=== PATIENT | female | born 1960 | race Caucasian/White ===

== ENCOUNTER 2019-06-16 18:34 | Emergency (ER) | payer OTHER ==
[2019-06-16 18:50] VITALS: BP 130/78; PULSE 89; TEMP 97.8; BMI 24.8
[2019-06-16] MEDS ORDERED: METOCLOPRAMIDE HCL INJECTION 10 MG/2 ML VIAL IVPUSH ONE (19:14)
[2019-06-16] MEDS ORDERED: SODIUM CHLORIDE 0.9% 500 ML INFUS.BAG IV ONE ×2 (19:14→20:37)
[2019-06-16] MEDS ORDERED: METOCLOPRAMIDE HCL INJECTION 10 MG/2 ML VIAL ONE (19:32)
[2019-06-16] MEDS ORDERED: ACETAMINOPHEN 1000 MG/100 ML VIAL (NON FORMULARY) IVPB ONE (20:36)
[2019-06-16] MEDS ORDERED: ACETAMINOPHEN INJECTION 100 ML IVPB ONE (20:41)
[2019-06-16] MEDS ORDERED: ONDANSETRON 4 MG/2 ML VIAL ONE (21:13)
[2019-06-16] MEDS ORDERED: ONDANSETRON 4 MG/2 ML VIAL IVPB ONE (21:13)
--- NOTE | 2019-06-16 22:46 | PDOC ---
Documentation entered by Consuelo Edwards SCRIBE, acting as scribe for Gurvinder Chairez MD. Gurvinder Chairez MD: This documentation has been prepared by the gaelibe, Consuelo Edwards SCRIBE, under my direction and personally reviewed by me in its entirety. I confirm that the documentation accurately reflects all work, treatment, procedures, and medical decision making performed by me. History of Present Illness - General Chief Complaint: Vomiting/Diarrhea Stated Complaint: VOMITING, DIARRHEA Time Seen by Provider: 06/16/19 19:14 History Source: Patient Exam Limitations: No Limitations - History of Present Illness Initial Comments: 06/16/19 19:45 The patient is a 58-year-old female with a past medical history significant for Mitral Valve Prolapse and Temporal arteritis (4 years ago) who presents to the emergency department with nausea, vomiting, and diarrhea. The patient reports she woke up at midnight with abdominal discomfort, then around 6:00 pm, she started to have episodes of diarrhea, which progressed into episodes of vomiting and dry heaving. The patient reports she tried to intake some fluids, such as Gatorade, but she wasnt able to keep fluids down. The patient reports associated symptoms of decreased appetite and a headache. The patient reports taking Pepcid for the symptoms without relief. The patient reports she went out for dinner last night with her and a bunch of people. The patient states she shared appetite with others in the table, and for entree, she had a halibut. Denies anyone else in the table have similar symptoms. 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 Past History - Past Medical History Allergies/Adverse Reactions: Allergies Allergy/AdvReac Type Severity Reaction Status Date / Time Sulfa (Sulfonamide Allergy Intermediate Rash Verified 06/16/19 18:39 Antibiotics) carrot Allergy Verified 06/16/19 18:40 macadamia nut oil Allergy Verified 06/16/19 18:40 pine nut Allergy Verified 06/16/19 18:40 Home Medications: Ambulatory Orders Cyclosporine [Restasis] 1 drop OU ASDIR 06/16/19 Fluticasone Prop 0.05% Nasal [Flonase -] 1 - 2 spray NS DAILY 06/16/19 Fluticasone Prop 0.05% Nasal [Flonase -] 1 - 2 spray NS DAILY 11/24/19 COPD: No Psychiatric Problems: Yes (DEPRESSION) Other medical history: temporal areteritis - Immunization History TDAP Vaccination: (UNKNOWN) - Psycho Social/Smoking Cessation Hx Smoking History: Never smoked Have you smoked in the past 12 months: No Information on smoking cessation initiated: No Hx Alcohol Use: (occasional) Substance Use Type: None Review of Systems - Review of Systems Able to Perform ROS?: Yes Comments:: 06/16/19 19:45 Constitutional - Pt denies Fever, Chills, weakness, HEENT: denies vision changes, sore throat Respiratory: Denies cough, sob, hemoptysis Cardiac: denies chest pain, palpitations, light headedness, leg swelling Abd/GI: +nausea, vomiting and diarrhea. : denies dysuria, frequency, discharge Musculskelatal - denies back pain, joint swelling skin - denies bruising, erythema, rash neurological: denies headache, numbness, focal weakness, tingling, ataxia, weakness hematologic: denies anemia, easy bruising, easy bleeding *Physical Exam - Vital Signs Last Vital Signs Temp Pulse Resp BP Pulse Ox 97.8 F 89 18 130/78 100 06/16/19 18:34 06/16/19 18:34 06/16/19 18:34 06/16/19 18:34 06/16/19 18:34 - Physical Exam Comments: 06/16/19 19:46 CONSTITUTIONAL: Well-appearing; well-nourished; in no apparent distress HEAD: Normocephalic; atraumatic EYES: PERRL; EOM intact ENMT: External appears normal NECK: Supple; non-tender CARD: Normal S1, S2; no murmurs, rubs, or gallops RESP: breath sounds clear and equal bilaterally; no wheezes, rhonchi, or rales ABD: Soft, non-distended; non-tender EXT: Normal ROM in all four extremities; non-tender to palpation SKIN: Warm, dry, no rash NEURO: No focal neurological deficiencies. ED Treatment Course - Medications Given in the ED: ED Medications Discontinued Medications Generic Name Dose Route Start Last Admin Trade Name Freq PRN Reason Stop Dose Admin Acetaminophen 1,000 mg 06/16/19 20:36 06/16/19 20:55 Ofirmev Injection - IVPB 06/16/19 20:37 1,000 mg ONCE ONE Administration Metoclopramide HCl 10 mg 06/16/19 19:14 06/16/19 19:35 Reglan Injection - IVPUSH 06/16/19 19:15 10 mg ONCE ONE Administration Ondansetron HCl 4 mg 06/16/19 21:13 06/16/19 21:15 Zofran Injection IVPB 06/16/19 21:14 4 mg ONCE ONE Administration Sodium Chloride 1,000 ml 06/16/19 19:14 06/16/19 19:35 Normal Saline - IV 06/16/19 19:15 1,000 ml ONCE ONE Administration Sodium Chloride 1,000 ml 06/16/19 20:37 06/16/19 20:55 Normal Saline - IV 06/16/19 20:38 1,000 ml ONCE ONE Administration Medical Decision Making - Medical Decision Making 06/17/19 04:34 age vs food poisoning observe din Ed with serial abd exams symptoms resolved after NS, anti-emetics at [facility] time of discharge, no complaints, abd nontender Discharge - Discharge Information Problems reviewed: Yes Clinical Impression/Diagnosis: Gastroenteritis Condition: Good Disposition: HOME - Follow up/Referral - Patient Discharge Instructions Patient Printed Discharge Instructions: DI for Viral Gastroenteritis -- Adult Additional Instructions: Stitches out - Post Discharge Activity
== END 2019-06-16 22:32 | disposition home or self-care (01) ==
LOC: FER 18:34
PROC: 3E033NZ Introduction of Analgesics, Hypnotics, Sedatives into Peripheral Vein, Percutaneous Approach (ICD-10-PCS; principal; 2019-06-16)
PROC: 3E0337Z Introduction of Electrolytic and Water Balance Substance into Peripheral Vein, Percutaneous Approach (ICD-10-PCS; 2019-06-16)
PROC: 3E033GC Introduction of Other Therapeutic Substance into Peripheral Vein, Percutaneous Approach (ICD-10-PCS; 2019-06-16)
DX: K52.9 Noninfective gastroenteritis and colitis, unspecified (principal); I34.1 Nonrheumatic mitral (valve) prolapse; Z88.2 Allergy status to sulfonamides; Z91.018 Allergy to other foods
CPT/HCPCS: 99282-25; J0131